=== PATIENT | female | born 1960 | race African-American/Black ===

== ENCOUNTER 2020-01-16 16:30 | Emergency (ER) | payer OTHER ==
[~2020-01-16] VITALS: Ht 162.6 cm; Wt 75.3 kg
[~2020-01-16 16:30] MED LIST: NO HOME MEDS
[2020-01-16 17:28] LABS: URINE BILIRUBIN NEGATIVE (Negative); URINE BLOOD NEGATIVE (Negative); URINE CLARITY CLEAR; URINE COLOR YELLOW; URINE GLUCOSE-RANDOM* NEGATIVE (Negative); URINE KETONES NEGATIVE (Negative); URINE LEUKOCYTES-REFLEX TRACE (Negative); URINE NITRITE-REFLEX NEGATIVE (Negative); URINE PROTEIN (DIPSTICK) NEGATIVE (Negative); URINE SPECIFIC GRAVITY <= 1.005 (1.005-1.035); URINE UROBILINOGEN 0.2 E.U./dl (0.2-1.0)
[2020-01-16] MEDS ORDERED: NORVASC5 MG PO (17:58)
[2020-01-16] MEDS ORDERED: WOMEN'S 50 PLU1 EACH PO (17:59)
[2020-01-16] MEDS ORDERED: PANTOPRAZOLE SO40 M1 PO (17:59)
[2020-01-16] MEDS ORDERED: HYDROCHLOROTH12.5 M1 PO (17:59)
[2020-01-16] MEDS ORDERED: SINGULAIR 10 MG10 MG PO (17:59)
[2020-01-16 18:00] LABS: ABSOLUTE NEUTROPHILS 6.5 thou/uL (1.4-8.2); BASOPHILS 0.7 % (0.0-2.0); EOSINOPHILS 0.8 % (0.0-3.0); HEMATOCRIT 39.1 % (37.0-47.0); HEMOGLOBIN 13.1 gm/dL (12.0-15.0); LYMPHOCYTES 23.5 % (24.0-44.0); MCH 27.9 pg (26.0-34.0); MCHC 33.4 g/dL (28.0-37.0); MCV 83.6 fL (80.0-100.0); MONOCYTES 5.9 % (1.0-8.0); PLATELET COUNT 332 thou/uL (150-400); POLYS 69.1 % (36.0-66.0); RBC 4.68 mil/uL (4.20-5.00); RDW 14.2 % (10.5-14.5); WBC 9.4 thou/uL (4.0-11.0)
[2020-01-16 18:05] LABS: ANION GAP 8 mmol/L (7-16); BUN 19 mg/dL (7-18); CALCIUM 9.6 mg/dL (8.5-10.1); CHLORIDE 102 mmol/L (98-107); CO2 29 mmol/L (21-32); CREATININE 1.2 mg/dL (0.6-1.0); GLUCOSE 106 mg/dL (74-106); POTASSIUM 3.6 mmol/L (3.5-5.1); SODIUM 139 mmol/L (136-145)
[2020-01-16 18:16] LABS: MAGNESIUM 2.4 mg/dL (1.8-2.4); SGOT 14 U/L (15-37); SGPT 17 U/L (30-65); TOTAL BILIRUBIN 0.2 mg/dL (0.2-1.0); TOTAL PROTEIN 8.5 g/dL (6.4-8.2); TROPONIN-I <0.06 ng/mL (<0.06)
[2020-01-16 19:03] VITALS: BP 130/82
--- NOTE | 2020-01-17 11:51 | EKG ---
[facility] [place], [place] [address] ELECTROCARDIOGRAM REPORT Name: COLE ARTHUR Room #: [facility]#: [id number] Admission: 01/16/20 Attend Phys: Discharge: 01/16/20 Date of : 58 Report #: [id number] THIS REPORT FOR: cc: Paula Humphrey MD, Sequita MD Couchonnal,Roberto Pascal MD ~ THIS REPORT FOR: //name// [facility] [place] [place] ED Test Date: 2020-01-16 Test Time: 17:50:24 Pat Name: COLE ARTHUR Department: Room: Gender: Dye Stand Loader: [facility] : 1960 Requested By: Omer Hart Order Number: [id number] MD: Roberto Burgess Measurements Intervals [place] Rate: 81 P: 41 OK: 163 QRS: -23 QRSD: 90 T: 4 QT: 418 QTc: 486 Interpretive Statements Sinus rhythm Left ventricular hypertrophy Compared to ECG 06/16/2010 08:48:55 Electronically Signed On 01-17-2020 11:50:37 CDT by Roberto Burgess [email or web address] <ELECTRONICALLY SIGNED> By: Roberto Burgess MD 01/17/201149 49 49 Roberto Burgess MD /AMADOU
== END 2020-01-16 19:02 | disposition home or self-care (01) ==
LOC: ER 16:30
PROVIDERS: Emergency Medicine
DX: R42 Dizziness and giddiness (principal); I10 Essential (primary) hypertension; Z71.1 Person with feared health complaint in whom no diagnosis is made; Z79.899 Other long term (current) drug therapy; Z88.1 Allergy status to other antibiotic agents

== ENCOUNTER 2020-05-07 18:27 | Emergency (ER) | payer OTHER ==
[~2020-05-07] VITALS: Ht 162.6 cm; Wt 72.6 kg
[~2020-05-07 18:27] MED LIST changes: +HYDROCHLOROTH12.5 M1 PO; +NORVASC5 MG PO; +PANTOPRAZOLE SO40 M1 PO; +SINGULAIR 10 MG10 MG PO; +WOMEN'S 50 PLU1 EACH PO
[2020-05-07 18:32] VITALS: BP 168/83
[2020-05-07] MEDS ORDERED: LIDODERM1 EACH TOP (21:19)
[2020-05-07] MEDS ORDERED: IBU600 MG PO (21:19)
[2020-05-07] MEDS ORDERED: FLEXERIL PO (21:19)
== END 2020-05-07 21:56 | disposition home or self-care (01) ==
LOC: ER 18:27
DX: S13.4XXA Sprain of ligaments of cervical spine, initial encounter (principal); M19.90 Unspecified osteoarthritis, unspecified site; M41.9 Scoliosis, unspecified; I10 Essential (primary) hypertension; Z79.899 Other long term (current) drug therapy; V43.93XA Unspecified car occupant injured in collision with pick-up truck in traffic accident, initial encounter; Y93.89 Activity, other specified; Y92.89 Other specified places as the place of occurrence of the external cause; Y99.8 Other external cause status

== ENCOUNTER → 2021-04-25 | Outpatient (CLI) | payer OTHER ==
[~2021-04-25] MED LIST changes: +FLEXERIL PO; +IBU600 MG PO; +LIDODERM1 EACH TOP
== END ==
LOC: SJCVC 10:02
PROVIDERS: ATTEND Internal Medicine
DX: R94.31 Abnormal electrocardiogram [ECG] [EKG] (principal); K21.9 Gastro-esophageal reflux disease without esophagitis; I11.9 Hypertensive heart disease without heart failure; R42 Dizziness and giddiness; E66.9 Obesity, unspecified; Z88.8 Allergy status to other drugs, medicaments and biological substances; Z79.899 Other long term (current) drug therapy; Z82.49 Family history of ischemic heart disease and other diseases of the circulatory system; Z72.89 Other problems related to lifestyle; Z88.1 Allergy status to other antibiotic agents

== ENCOUNTER 2021-08-02 10:20 | Emergency (ER) | payer OTHER ==
[~2021-08-02] VITALS: Ht 162.6 cm; Wt 78.0 kg
[2021-08-02 11:43] VITALS: BP 110/72
== END 2021-08-02 12:54 | disposition home or self-care (01) ==
LOC: ER 10:20
DX: U07.1 COVID-19 (principal); I10 Essential (primary) hypertension; Z79.899 Other long term (current) drug therapy